=== PATIENT | female | born 1955 | race Hispanic/Latino ===

== ENCOUNTER 2020-02-22 00:29 | Emergency (ER) | payer SELFPAY ==
[~2020-02-22] VITALS: Ht 160 cm; Wt 75.0 kg
[~2020-02-22 00:29] MED LIST: METFORMIN850 MG PO
[2020-02-22] MEDS ORDERED: INSULIN (01:50)
[2020-02-22 03:28] VITALS: BP 159/73
== END 2020-02-22 03:28 | disposition home or self-care (01) | DRG 605 ==
LOC: ED 00:29
PROC: 0HQ0XZZ Repair Scalp Skin, External Approach (ICD-10-PCS; principal; 2020-02-22)
DX: S01.01XA Laceration without foreign body of scalp, initial encounter (principal); E11.9 Type 2 diabetes mellitus without complications; W01.0XXA Fall on same level from slipping, tripping and stumbling without subsequent striking against object, initial encounter; Y92.009 Unspecified place in unspecified non-institutional (private) residence as the place of occurrence of the external cause; Z79.4 Long term (current) use of insulin

== ENCOUNTER 2020-10-13 07:01 | Day surgery (SDC) | payer BC ==
[~2020-10-13] VITALS: Ht 160 cm; Wt 74.4 kg
[~2020-10-13 07:01] MED LIST changes: +INSULIN; +METFORMIN500 M2 PO; +TRESIBA FL100 UNIT/M SC; +TRULICITY0.75 MG/0. SC
[2020-10-13 09:13] VITALS: BP 124/60
== END 2020-10-13 09:25 | disposition home or self-care (01) | DRG 951 ==
LOC: ENDO 07:01
PROVIDERS: ATTEND Surgery
PROC: 0DJD8ZZ Inspection of Lower Intestinal Tract, Via Natural or Artificial Opening Endoscopic (ICD-10-PCS; principal; 2020-10-13)
DX: Z12.11 Encounter for screening for malignant neoplasm of colon (principal); K64.8 Other hemorrhoids; E11.9 Type 2 diabetes mellitus without complications; Z79.4 Long term (current) use of insulin

== ENCOUNTER 2022-09-21 09:59 | Observation (INO) | payer BC ==
[2022-09-21] VITALS (13 sets, daily range): BP systolic 135–175; BP diastolic 55–102
[~2022-09-21] VITALS: Ht 160 cm; Wt 76.0 kg
[2022-09-21 10:50] LABS: BASO% 0.3 % (0-3); EOS% 0.3 % (0-8); HEMATOCRIT 47.8 % (37.0-47.0); HEMOGLOBIN 15.4 g/dl (12.0-16.0); IMMATURE GRANULOCYTES 0.1 % (0.0-5.0); LYMPH% 12.1 % (15-41); MEAN CELL VOLUME 90.5 fL CALC (80.0-100.0); MEAN CORPUSCULAR HGB 29.2 pG CALC (26.0-32.0); MEAN CORPUSCULAR HGB CONC 32.2 g/dL CAL (32.0-36.0); MONO% 3.9 % (2-13); NEUT# 9.38 thou/uL (2.00-7.15); NEUT% 83.3 % (42-76); RED BLOOD COUNT 5.28 mill/uL (4.20-5.60); RED CELL DISTRI WIDTH 14.2 % (11.5-15.5)
[2022-09-21 10:57] LABS: ALBUMIN 4.1 g/dL (3.2-5.0); ALKALINE PHOSPHATASE 85 u/l (38-126); ANION GAP 11 (6-22 (CALC)); BUN 17 mg/dL (8-23); BUN/CREATININE RATIO 27 (12-20 (CALC)); CARBON DIOXIDE 28 mmol/l (22-30); CHLORIDE 102 mmol/l (95-108); CREATININE 0.6 mg/dL (0.5-1.0); ETHYL ALCOHOL 0 mg/dl (0-30); GFR FOR AFR.AMER. > 60 ML/MIN (>=60 (CALC)); GFR OTHER RACES > 60 ML/MIN (>=60 (CALC)); LIPASE 78 u/l (23-300); MAGNESIUM 1.8 mg/dL (1.6-2.3); POTASSIUM 4.3 mmol/l (3.5-5.1); SGOT/AST 23 u/l (9-36); SODIUM 137 mmol/l (137-146); TOTAL PROTEIN 6.7 g/dL (6.3-8.2)
[2022-09-21 10:58] LABS: BILIRUBIN, TOTAL 0.4 mg/dL (0.02-1.3)
[2022-09-21] MEDS ORDERED: LEVOTHYROXIN50 MCG PO (11:02)
[2022-09-21] MEDS ORDERED: COZAAR25 MG PO (11:03)
[2022-09-21] MEDS ORDERED: LANTUS100 UNIT SC (11:05)
[2022-09-21] MEDS ORDERED: JARDIANCE25 MG PO (11:06)
[2022-09-21 11:14] LABS: URINE BLOOD DIPSTICK TRACE-INTACT (NEGATIVE); URINE COLOR YELLOW; URINE GLUCOSE - DIPSTICK >=1000 mg/dL (NEGATIVE); URINE KETONE NEGATIVE (NEGATIVE); URINE LEUK ESTERASE NEGATIVE (NEGATIVE); URINE NITRITE - DIPSTICK NEGATIVE (Negative); URINE PH 5.5 (4.5-8.0); URINE PROTEIN - DIPSTICK NEGATIVE (NEG-TRACE); URINE SPECIFIC GRAVITY 1.025; URINE UROBILINOGEN - DIPSTICK 0.2 E.U./dL (0.2)
[2022-09-21 11:48] LABS: URINE BILIRUBIN - DIPSTICK NEGATIVE (NEGATIVE)
[2022-09-22 00:48] VITALS: BP 142/54
[2022-09-22 04:52] VITALS: BP 142/70
[2022-09-22 05:22] LABS: BASO% 0.7 % (0-3); EOS% 2.4 % (0-8); HEMOGLOBIN 13.8 g/dl (12.0-16.0); IMMATURE GRANULOCYTES 0.5 % (0.0-5.0); LYMPH% 38.9 % (15-41); MEAN CELL VOLUME 90.5 fL CALC (80.0-100.0); MEAN CORPUSCULAR HGB 28.4 pG CALC (26.0-32.0); MEAN CORPUSCULAR HGB CONC 31.4 g/dL CAL (32.0-36.0); MONO% 6.4 % (2-13); NEUT# 2.97 thou/uL (2.00-7.15); NEUT% 51.1 % (42-76); RED BLOOD COUNT 4.86 mill/uL (4.20-5.60)
[2022-09-22 05:42] LABS: ALBUMIN 3.6 g/dL (3.2-5.0); ALKALINE PHOSPHATASE 63 u/l (38-126); ANION GAP 9 (6-22 (CALC)); BILIRUBIN, TOTAL 0.3 mg/dL (0.02-1.3); BUN 11 mg/dL (8-23); BUN/CREATININE RATIO 19 (12-20 (CALC)); CARBON DIOXIDE 29 mmol/l (22-30); CHLORIDE 108 mmol/l (95-108); CREATININE 0.6 mg/dL (0.5-1.0); GFR FOR AFR.AMER. > 60 ML/MIN (>=60 (CALC)); GFR OTHER RACES > 60 ML/MIN (>=60 (CALC)); POTASSIUM 4.1 mmol/l (3.5-5.1); SGOT/AST 24 u/l (9-36); SODIUM 142 mmol/l (137-146); TOTAL PROTEIN 6.3 g/dL (6.3-8.2)
[2022-09-22 06:54] VITALS: BP 142/61
[2022-09-22 08:38] VITALS: BP 155/59
[2022-09-22 11:37] VITALS: BP 169/69
[2022-09-22 15:48] VITALS: BP 145/59
== END 2022-09-22 15:53 | disposition home or self-care (01) | DRG 639 ==
LOC: ED 09:59 → ED-I 11:40 → ED 11:56 → MS2 11:57
PROVIDERS: Family Medicine; Nurse Practitioner Family; ADMIT Internal Medicine; ATTEND Internal Medicine
DX: E11.649 Type 2 diabetes mellitus with hypoglycemia without coma (principal); I10 Essential (primary) hypertension; E03.9 Hypothyroidism, unspecified; R91.1 Solitary pulmonary nodule; Z79.4 Long term (current) use of insulin; Z79.84 Long term (current) use of oral hypoglycemic drugs; Z79.85 Long-term (current) use of injectable non-insulin antidiabetic drugs; Z20.822 Contact with and (suspected) exposure to COVID-19; Z91.198 Patient's noncompliance with other medical treatment and regimen for other reason
CPT/HCPCS: G0378; J1650; Q9967